=== PATIENT | female | born 1990 | race Caucasian/White ===

== ENCOUNTER 2019-10-23 13:07 | Emergency (ER) | payer BC, SELFPAY ==
[2019-10-23 13:22] VITALS: BP 144/81; PULSE 78; RESP 19; TEMP 36.6; O2SAT 98; BMI 26.6
[2019-10-23 13:23] LABS: Apearance,Urine Clear (Clear); Color,Urine Orange (Yellow); PH,Urine 6.5 (5.0-8.5)
[2019-10-23 13:24] LABS: Bilirubin,Urine Negative (Negative); Blood, Urine 2+ (Negative); Glucose,Urine (UA) 100 (Negative); Ketones,Urine Negative (Negative); Protein,Urine 1+ (Negative)
[2019-10-23 13:25] LABS: UTC Leukocyte Esterase,Urine Negative (Negative); UTC Nitrate,Urine Positive (Negative); Urobilinogen,Urine 1 EU/dl (0.2)
--- NOTE | 2019-10-23 13:47 | HMH.EDUTC ---
[facility] [place] Clinical Impression: UTI (urinary tract infection) Qualifiers: Urinary tract infection type: site unspecified Hematuria presence: with hematuria Qualified Code(s): N39.0 - Urinary tract infection, site not specified Disposition: Home, Self-Care Condition on Discharge: Good Instructions: Trimethoprim/Sulfamethoxazole (Alternative Therapy), Urinary Tract Infection, DI for Urinary Tract Infection (UTI), Phenazopyridine Additional Instructions: *Increase fluids. Water not Soda or Tea *Start antibiotic immediately and be sure to take as ordered for the FULL length of time although you should start to see improvement over the next 48 hours *Pyridium as needed Remember this medication will turn your urine [place]. This is normal but it will stain what ever it gets on *You should not use Pyridium for more than 48 hours. If so , follow up with your primary physician to review urine culture and ensure that antibiotic is adequate for infection *Be SURE to follow up anytime for new or worsening symptoms with your family doctor. AND in 48 hours for urine culture results with your family doctor, if you do not have a doctor then you may call back to the [facility] for urine culture results and further treatment. We do recommend that you choose and establish care with a Primary Care Physician. AND follow up with them in 10-14 days to repeat UA to ensure infection is resolved and blood no longer present *Be sure to let your PCP know that we sent urine cultures from the [facility] so they can follow up to ensure that you area the on the correct antibiotic Call your doctor office and make appointment for 48 hours (2 days from today) to follow up and get the results of your urine culture and further treatment Make sure to call back on Sunday to see what your urine culture showed [phone] Prescriptions: Sulfamethoxazole/Trimethoprim [Bactrim DS tablet] 1 each PO BID 10 Days #20 tab Transmission Status: Received by [id number] Phenazopyridine HCl [Pyridium 200mg Tablet] 200 pow PO TID #6 tab Transmission Status: Received by [id number] Referrals: PCP,No [Primary Care Provider] - As needed Time of Disposition: 13:53 Medical Decision Making - Agus Inquiry Pt receiving controlled substance: No Agus was queried for this patient: No Vital Signs: 10/23/19 13:22 08/13/20 13:58 Temperature 97.8 F 97.8 F Temperature Source Oral Pulse Rate 78 Pulse Rate [Right Brachial] 78 Respiratory Rate 19 19 Blood Pressure 144/81 H Blood Pressure [Right Arm] 144/81 H Blood Pressure Mean [Right Arm] 102 Blood Pressure Source [Right Arm] Automatic Cuff Blood Pressure Position [Right Arm] Sitting 02 Sat by Pulse Oximetry 98 Oxygen Delivery Method Room Air - Lab Data Lab results reviewed: Yes: I reviewed the patient's lab results. Lab Results 10/23/19 13:17: Urine Color [place], Urine Appearance Clear, Urine pH 6.5, Ur Specific [place] 1.020, Urine Protein 1+, Urine Glucose (UA) 100, Urine Ketones Negative, Urine Blood 2+, Urine Nitrate Positive A, Urine Bilirubin Negative, Urine Urobilinogen 1, Ur Leukocyte Esterase Negative Orders (Tests/Meds): ED MEDICATIONS Discontinued Medications Generic Name Dose Route Start Last Admin Trade Name Freq PRN Reason Stop Dose Admin Ceftriaxone Sodium 1 gm 10/23/19 13:36 10/23/19 13:57 Rocephin 1gm Vial IM 10/23/19 13:37 1 gm ONCE ONE Administration Protocol Lidocaine HCl 0 ml 10/23/19 13:36 10/23/19 13:57 Lidocaine 1% 10ml Mdv IM 10/23/19 13:37 2.1 ml ONCE ONE Administration ORDERS Category Date Time Status Urine Culture Stat Micro 10/23/19 13:20 [place] [facility] [place] - General Stated complaint: Burning when voiding, back pain Time Seen by Provider: 10/23/19 13:47 Mode of Arrival: Ambulatory Source of Information: Patient Limitations: No Limitations Description of Symptoms (Recalled from Triage Doc. by RN): PATIENT
[2019-10-23 13:58] VITALS: BP 144/81; PULSE 78; RESP 19; TEMP 36.6; O2SAT 98
== END 2019-10-23 14:05 | disposition home or self-care (01) ==
PROVIDERS: Emergency Provider Nurse Practitioner
DX: N30.00 Acute cystitis without hematuria (principal)
CPT/HCPCS: 81003; 87086; 87088; 87186; 96372; 99202

== ENCOUNTER 2019-11-15 18:32 | Emergency (ER) | payer BC, SELFPAY ==
[2019-11-15 18:53] VITALS: BP 140/80; PULSE 74; RESP 20; O2SAT 96; BMI 29.7
--- NOTE | 2019-11-15 19:26 | HMH.EDUTC ---
[facility] [place] Clinical Impression: Vaginal yeast infection UTI (urinary tract infection) Qualifiers: Urinary tract infection type: site unspecified Hematuria presence: without hematuria Qualified Code(s): N39.0 - Urinary tract infection, site not specified Disposition: Home, Self-Care Condition on Discharge: Good Instructions: Urinary Tract Infection, DI for Vaginal Yeast Infection, DI for Urinary Tract Infection (UTI) Additional Instructions: Stop the Macrobid and start the Minocycline Take one Diflucan now and may repeat in 72 hours Return if needed Straight to ER if any life threatening symptoms Call back to the [facility] in the next 48 hours to see if your urine culture is back and the result Return if needed *Increase fluids. Water not Soda or Tea *Start antibiotic immediately and be sure to take as ordered for the FULL length of time although you should start to see improvement over the next 48 hours *Be SURE to follow up anytime for new or worsening symptoms with your family doctor. AND in 48 hours for urine culture results with your family doctor, if you do not have a doctor then you may call back to the [facility] for urine culture results and further treatment. We do recommend that you choose and establish care with a Primary Care Physician. AND follow up with them in 10-14 days to repeat UA to ensure infection is resolved and blood no longer present *Be sure to let your PCP know that we sent urine cultures from the [facility] so they can follow up to ensure that you area the on the correct antibiotic Call your doctor office and make appointment for 48 hours (2 days from today) to follow up and get the results of your urine culture and further treatment Prescriptions: Fluconazole [Diflucan 150mg tab] 150 mg PO DIRECTED #2 tab Prescription Printed Minocycline HCl [Minocycline HCl 100mg Tab*] 100 mg PO BID 10 Days #20 tab Prescription Printed Referrals: PCPNo [Primary Care Provider] - As needed Time of Disposition: 19:39 Medical Decision Making - Agus Inquiry Pt receiving controlled substance: No Agus was queried for this patient: No Vital Signs: 11/15/19 18:53 Pulse Rate [Left Brachial] 74 Respiratory Rate 20 Blood Pressure [Left Arm] 140/80 Blood Pressure Mean [Left Arm] 100 Blood Pressure Source [Left Arm] Automatic Cuff Blood Pressure Position [Left Arm] Sitting 02 Sat by Pulse Oximetry 96 Oxygen Delivery Method Room Air - Lab Data Lab Results 11/15/19 19:27: Urine Color [place], Urine Appearance Clear, Urine pH 6.0, Ur Specific [place] 1.020, Urine Protein 1+, Urine Glucose (UA) 1+, Urine Ketones Trace, Urine Blood Negative, Urine Nitrate Positive A, Urine Bilirubin Negative, Urine Urobilinogen 1, Ur Leukocyte Esterase Trace Orders (Tests/Meds): ORDERS Category Date Time Status Urine Culture Stat Micro 11/15/19 18:20 Ordered Medical Decision Narrative: Last urine culture less than month ago showed staff as underlying organism, checked with pharmacy, macrobid not on list Patient medication changed to Minocycline and patient verbalized understanding [facility] [place] - General Stated complaint: yeast infection Time Seen by Provider: 11/15/19 19:26 Mode of Arrival: Ambulatory Source of Information: Patient Limitations: No Limitations Description of Symptoms (Recalled from Triage Doc. by RN): PATIENT C/O YEAST INFECTION. STATES SHE WAS TREATED HERE FOR UTI 2 WEEKS AGO. SHE RETURNED TO [facility] 3 DAYS AGO FOR CONTINUING UTI SYMPTOMS AND WAS PUT ON ANOTHER ANTIBIOTIC FOR UTI. HEENT Symptoms (Recalled from RN notes): No Resp Symptoms (Recalled from RN notes): No Skin Symptoms (Recalled from RN notes): No MS Symptoms (Recalled from RN notes): No Functional Status (Recalled from RN notes): WNL - History of Present Illness Provider Complaint: States that she was seen and treated for UTI about a month ago States that for last couple of days she has been having UTI symptoms again along with wh
[2019-11-15 19:28] LABS: Color,Urine Amber (Yellow)
[2019-11-15 19:29] LABS: Apearance,Urine Clear (Clear)
[2019-11-15 19:32] LABS: Glucose,Urine (UA) 1+ (Negative); Protein,Urine 1+ (Negative)
[2019-11-15 19:33] LABS: Bilirubin,Urine Negative (Negative); Blood, Urine Negative (Negative); Ketones,Urine TRACE (Negative)
[2019-11-15 19:34] LABS: UTC Leukocyte Esterase,Urine Trace (Negative); UTC Nitrate,Urine Positive (Negative); Urobilinogen,Urine 1 EU/dl (0.2)
[2019-11-15 19:41] VITALS: BP 140/80; PULSE 74; RESP 20; TEMP 36.7; O2SAT 96
== END 2019-11-15 19:45 | disposition home or self-care (01) ==
PROVIDERS: Emergency Provider Nurse Practitioner
DX: B37.3 Candidiasis of vulva and vagina (principal)
CPT/HCPCS: 81003; 87086; 99201

== ENCOUNTER 2021-01-16 10:40 | Emergency (ER) | payer BC, SELFPAY ==
[2021-01-16 10:41] VITALS: BP 108/68; PULSE 67; RESP 14; TEMP 36.6; O2SAT 98; BMI 33.2
--- NOTE | 2021-01-16 11:07 | HMH.EDGENADL ---
ED Disposition Clinical Impression: Finger laceration Qualifiers: Encounter type: initial encounter Finger: index finger Damage to nail status: without damage Foreign body presence: without foreign body Laterality: right Qualified Code(s): S61.210A - Laceration without foreign body of right index finger without damage to nail, initial encounter Disposition: Home, Self-Care Condition on Discharge: Good Instructions: DI for Laceration Repair Additional Instructions: Additional instructions for HAND LACERATION: Clean the wound daily with soap and water. Avoid submerging the wound. No swimming.DO NOT USE any antibiotic ointment such as Neosporin, Polysporin, or triple antibiotic. This will delay healing. See your primary care physician or return to the [facility] in 10 days for suture removal. The [facility] is open 9 AM to 9 PM 7 days a week. Return if any signs of infection including increasing pain, pus drainage, swelling, redness, red streaks, or fever. Referrals: Elena Roth APRN [Primary Care Provider] - - Critical Care Critical Care Time: No Attestation: On 01/16/21, the high probability of a clinically significant, sudden or life threatening deterioration of the following system(s) required my full and direct attention, intervention and personal management. The time I documented below is in addition to time spent performing reported procedures but includes the following listed in this critical care notation. Medical Decision Making - Agus Inquiry Pt receiving controlled substance: No Vital Signs: 01/16/21 10:41 Temperature 97.8 F Temperature Source Oral Pulse Rate [Left Radial] 67 Respiratory Rate 14 Blood Pressure [Left Arm] 108/68 L Blood Pressure Mean [Left Arm] 81 Blood Pressure Source [Left Arm] Automatic Cuff Blood Pressure Position [Left Arm] Sitting 02 Sat by Pulse Oximetry 98 Oxygen Delivery Method Room Air Orders (Tests/Meds): ED MEDICATIONS Discontinued Medications Generic Name Dose Route Start Last Admin Trade Name Freq PRN Reason Stop Dose Admin Lidocaine HCl 20 ml 01/16/21 11:18 Lidocaine 1% 20ml Mdv SQ 01/16/21 11:19 ONCE ONE Tetanus/Diphtheria Toxoids 0.5 ml 01/16/21 11:16 Tetanus-Diphth Toxoid, Adult 0.5ml Syr IM 01/16/21 11:17 .ONCE ONE Tetanus/Reduced Diphtheria/Acell Pertussis 0.5 ml 01/16/21 11:18 Tet/Diphth/Pert-Adult 0.5ml Syringe IM 01/16/21 11:19 .ONCE ONE General Adult HPI - General Stated complaint: AO 01/16 finger laceration Time Seen by Provider: 01/16/21 11:08 - History of Present Illness HPI narrative: Closed a pocket knife on her right index finger 1 hour ago. Sustained a laceration to the dorsum of her finger. No numbness or weakness. Last tetanus immunization is unknown. - Related Data Previous Rx's Medication Instructions Recorded azithromycin 250 mg tablet 250 mg PO QDAY 5 Days #6 tab 05/12/20 fluticasone propionate 50 1 spray INTRANASAL QDAY #9.9 ml 05/12/20 mcg/actuation nasal spray,suspension Allergies Allergy/AdvReac Type Severity Reaction Status Date / Time No Known Allergies Allergy Verified 05/12/20 17:21 [facility] History - Hepatitis A Screen Attestation statement:: This patient has been screened for Hepatitis A risk factors. 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
[2021-01-16 11:56] VITALS: BP 128/89; PULSE 74; RESP 14; TEMP 36.7; O2SAT 97
== END 2021-01-16 11:58 | disposition home or self-care (01) ==
PROVIDERS: Emergency Provider Emergency Medicine; PCP Nurse Practitioner Family
DX: S61.210A Laceration without foreign body of right index finger without damage to nail, initial encounter (principal); W26.2XXA Contact with edge of stiff paper, initial encounter; Y92.019 Unspecified place in single-family (private) house as the place of occurrence of the external cause
CPT/HCPCS: 12001; 99282

== ENCOUNTER → 2021-03-14 14:12 | Outpatient (CLI) | payer BC, SELFPAY ==
[2021-03-14 14:25] LABS: Alanine Aminotransferase 29 U/L (12-78); Albumin Level 4.8 g/dl (3.5-5.0); Albumin/Globulin Ratio 1.5 (1.1-1.8); Alkaline Phosphatase 66 U/L (38-126); Anion Gap 13.2 mEq/L (5-15); Aspartate Amino Transferase 28 U/L (14-36); Bilirubin,Total 0.5 mg/dl (0.2-1.3); Blood Urea Nitrogen 10 mg/dl (7-17); Calcium 10.2 mg/dl (8.4-10.2); Carbon Dioxide 30 mmol/L (22.0-30.0); Chloride 100 mmol/L (98-107); Estimated Glomerular Filt Rate 117 ml/min (>60); GFR (African American) 141 ML/MIN (>60); Globulin 3.1 g/dL (1.3-3.2); Glucose 92 mg/dl (74-100); Potassium 4.2 mmoL/L (3.5-5.1); Sodium 139 mmol/L (136-145); Total Protein,Serum 7.9 g/dl (6.3-8.2)
[2021-03-14 14:29] LABS: Basophils % 0.3 % (0.1-2.0); Eosinophils # 0.2 K/mm3 (0.0-0.4); Eosinophils % 2.2 % (0.1-12.0); Hematocrit 47.3 % (37.0-47.0); Hemoglobin 15.3 g/dL (12.2-16.2); Lymphocytes # 1.2 K/mm3 (0.7-4.5); Lymphocytes % 16.4 % (10-50); Mean Corpuscular HGB Conc 32.3 g/dL (31.8-35.4); Mean Corpuscular Hemoglobin 31.3 pg (27.0-31.2); Mean Corpuscular Volume 96.7 fl (81-99); Mean Platelet Volume 8.4 fl (7.4-10.4); Monocytes # 0.3 K/mm3 (0.1-1.0); Monocytes % 3.7 % (1.7-9.3); Neutrophils # 5.6 K/mm3 (1.8-7.8); Neutrophils % 77.4 % (37.0-80.0); Platelet Count 414 K/mm3 (142-424); Red Blood Count 4.89 M/mm3 (4.20-5.40); Red Cell Distribution Width 12.7 % (11.5-17.5); White Blood Count 7.2 K/mm3 (4.8-10.8)
[2021-03-14 14:42] LABS: T4 (Thyroxine) 10.1 ug/dl (5.53-11.0)
[2021-03-14 14:56] LABS: Thyroid Stimulating Hormone 1.39 uIU/mL (0.465-4.68)
== END ==
PROVIDERS: Visit Provider Nurse Practitioner Family
DX: F32.A Depression, unspecified (principal); F41.9 Anxiety disorder, unspecified
CPT/HCPCS: 80053; 84436; 84443; 85025

== ENCOUNTER → 2021-04-01 14:25 | Outpatient (CLI) | payer BC, SELFPAY ==
[2021-04-01 16:46] LABS: Amphetamine/Metha Screen,Urine Negative ng/ml (<1000); Barbiturates Screen,Urine Negative ng/ml (<200)
[2021-04-01 16:47] LABS: Benzodiazepines Screen,Urine Negative ng/ml (<200)
[2021-04-01 16:48] LABS: Cannabinoid Screen,Urine Positive ng/ml (<50); Cocaine Screen,Urine Negative ng/ml (<300)
[2021-04-01 16:49] LABS: Methadone Screen,Urine Negative ng/ml (<300); Opiate Screen,Urine Negative ng/ml (<300)
[2021-04-01 16:50] LABS: Phencyclidine Screen,Urine Negative ng/ml (<25)
== END ==
PROVIDERS: Visit Provider Nurse Practitioner Family
DX: F41.9 Anxiety disorder, unspecified (principal)
CPT/HCPCS: 80305

== ENCOUNTER → 2021-09-25 13:29 | Outpatient (CLI) | payer BC, SELFPAY | PROVIDERS: PCP Nurse Practitioner Family; Visit Provider Nurse Practitioner Family | DX: U07.1 COVID-19 (principal) | CPT/HCPCS: C9803; U0003; U0005 ==

== ENCOUNTER 2022-01-11 07:59 | Emergency (ER) | payer BC, SELFPAY ==
[2022-01-11 08:15] VITALS: BP 129/83; PULSE 77; RESP 18; TEMP 36.8; O2SAT 98; BMI 28.8
--- NOTE | 2022-01-11 08:20 | EXP.UTC ---
Discharge Plan Disposition Patient Disposition: Home, Self-Care Condition: Good Referrals Follow up/Referrals: Elena Roth APRN [Primary Care Provider] - See instructions Activity Restrictions/Add. Instructions Additional Instructions/Restrictions: Call your Family Doctor and get in as soon as possible Return if needed Drink extra fluids with and between meals. If you have difficulty drinking, try very small amounts of water or suck on ice chips. ? Avoid fruit juices, as these do not replace minerals and can actually increase diarrhea. ? Children and adults can use sports drinks to replenish electrolytes. Younger children and infants should use products formulated for children, like oral rehydration solutions. ? Eat food in small amounts and let your stomach recover. ? Get lots of rest. You may feel tired or weak. ? No greasy or fried foods for the next 24-48 hours BRAT diet Bananas Rice Apples and [place] ? Make sure to drink plenty of liquids ? Return if needed ? Straight to ER if any life threatening symptoms ? Zofran as prescribed ? You was given an outpatient order for diarrhea panel, please collect specimen and bring back to outpatient lab then call back to the [facility] or follow up with family doctor for results ? Follow up with family doctor in the next 48-72 hours if no improvement or any worsening of symptoms Clinical Impressions Clinical Impression: Nausea, vomiting, and diarrhea Stand Alone Forms Stand Alone Forms: Work/School Release Instructions Patient Instructions: Diarrhea, Nausea and Vomiting-Adult Discharge ED Provider: Beatrice Steve [facility] [place] General Stated complaint: dizzy, nausea, diarrhea, possible reaction to meds Mode of Arrival: Ambulatory Source of Information: Patient Limitations: No Limitations Time Seen by Provider: 01/11/22 08:20 Description of Symptoms (Recalled from Triage Doc. by RN): pt c/o possible medicine reaction to buspar. Pt states that she also has had nausea vomiting and diarrhea for prior 3 days. Was seen by Elena patricia for new buspar rx and has since been dizzy HEENT Symptoms (Recalled from RN notes): No Resp Symptoms (Recalled from RN notes): No Skin Symptoms (Recalled from RN notes): No MS Symptoms (Recalled from RN notes): No Functional Status (Recalled from RN notes): na History of Present Illness Provider Complaint: Patient states that she started on Sunday with diarrhea and then seen PCP on Sunday and had a flu test and was started on new medication Buspar States that she has also had N/V and felt dizzy on and off and thinks it may be the medication causing it States that she did have increased anxiety yesterday and she called the office and they sent her in a PRN Medication to help states that she just wanted to get checked out Related Data Allergies Allergy/AdvReac Type Severity Reaction Status Date / Time No Known Allergies Allergy Verified 01/11/22 09:40 Worker's Comp Is this a Worker's Comp case?: No PFSH PFSH Medical History (Updated 01/11/22 @ 09:42 by Cheryle Bauer APRN) Major depressive disorder Posttraumatic stress disorder Family History (Updated 01/11/22 @ 09:42 by Cheryle Bauer APRN) Sister FHx: mental illness Sister FHx: mental illness Grandmother Cancer Mother Thyroid disorder Diabetes Hypertension Hyperlipidemia Social History (Updated 01/11/22 @ 09:27 by Cheryle Bauer APRN) Smoking Status: Never smoker second hand exposure: No alcohol intake: never substance use type: marijuana counseling given: Yes (she does this 2-3 nights per week; to help her mood and appetite) current occupational status: employed Travel in the last 8 weeks: None adopted: No caregiver/support person: No foster care: No household members: none housing: house lives independently: Yes marital status: single number of child
[2022-01-11 08:39] VITALS: BP 129/83; PULSE 77; RESP 18; TEMP 36.8; O2SAT 98
[2022-01-11 08:40] LABS: UTC Influenza A Antigen Negative (Negative); UTC Influenza B Antigen Negative (Negative)
== END 2022-01-11 08:45 | disposition home or self-care (01) ==
PROVIDERS: Emergency Provider Nurse Practitioner; PCP Nurse Practitioner Family
DX: R11.2 Nausea with vomiting, unspecified (principal); R19.7 Diarrhea, unspecified
CPT/HCPCS: 87804; 99212; G0463

== ENCOUNTER → 2022-01-27 15:01 | Outpatient (CLI) | payer BC, SELFPAY ==
--- NOTE | 2022-01-27 15:08 | US_ITS ---
FINAL REPORT CLINICAL HISTORY: DISORDER OF THYROID FINDINGS: THYROID ULTRASOUND The right lobe of the thyroid measures 5.1 x 1.9 x 1.0 cm. The left lobe of the thyroid measures 4.0 x 1.1 x 0.8 cm. There are 2 TI-RADS 4 nodules in the right lobe of the thyroid. A 2.2 x 1.9 cm nodule is seen in the upper pole of the right thyroid. A 1.8 x 0.5 cm nodule is seen in the lower pole of the right thyroid. IMPRESSION: 2 TI-RADS 4 nodules in the right lobe of the thyroid. Per TI-RADS criteria recommend ultrasound-guided FNA of both nodules. Reviewed, Interpreted and Dictated by Paul Novak MD Transcribed by Eulogio Reyna Authenticated and [facility]
== END ==
PROVIDERS: PCP Nurse Practitioner Family; Visit Provider Nurse Practitioner Family
DX: E07.9 Disorder of thyroid, unspecified (principal)
CPT/HCPCS: 76536

== ENCOUNTER → 2022-05-08 07:51 | Outpatient (CLI) | payer BC, SELFPAY ==
--- NOTE | 2022-05-08 07:56 | US_ITS ---
FINAL REPORT CLINICAL HISTORY: .rt thyroid fna x 2 sites-- christine ulrich FINDINGS: Ultrasound guided thyroid biopsy. Attending radiologist: Dr. Ledbetter Physician Director Operations: Dr. Corky PA-C HISTORY: . 2 separate TR4 nodules within the right lobe of the thyroid. PROCEDURE: After informed consent was obtained and a time-out was performed, the patient was prepped and draped in usual sterile fashion over the right neck. Utilizing local anesthesia and sterile technique with a 25-gauge needle, access to lesions were obtained. A total of 4 passes were made into each nodule. The pathologist indicated the specimens were adequate for diagnostic purposes. The patient received no conscious sedation. The patient tolerated procedure well and left the department in good condition. IMPRESSION: Status post ultrasound guided biopsy of 2 thyroid nodules without immediate complication. Films reviewed , interpreted and dictated by Dr. Kim Ledbetter. Transcribed by Christine Fried PA-C. Reviewed, Interpreted and Dictated by Kim Ledbetter MD Transcribed by NBA Hollingsworth Authenticated and [facility]
== END ==
PROVIDERS: PCP Nurse Practitioner Family; Visit Provider Student in an Organized Health Care Education/Training Program
DX: E04.2 Nontoxic multinodular goiter (principal)
CPT/HCPCS: 10005; 88173

== ENCOUNTER → 2022-11-20 15:08 | Outpatient (CLI) | payer BC, SELFPAY ==
--- NOTE | 2022-11-20 15:14 | US_ITS ---
FINAL REPORT CLINICAL HISTORY: thyroid nodule COMPARISON: 01/27/2022 FINDINGS: THYROID ULTRASOUND: The right lobe of the thyroid measures 5.1 x 1.2 x 1.6 cm in size. There are 2 nodules seen in the right lobe of the thyroid gland. In the upper pole there is a 17 x 7 x 14 mm solid isoechoic TI-RADS category 3 nodule. In the lower pole of the right thyroid gland there is a 15 x 6 x 12 mm solid hypoechoic TI-RADS 4 category nodule with microcalcification present. Both of these nodules are stable and were both biopsied in April 2022. The left lobe of the thyroid measures 3.5 x 1.2 x 1.6 cm in size. No nodules are identified in the left lobe of the thyroid gland. The isthmus was not measured but appears unremarkable without evidence of a nodule seen. IMPRESSION: There are 2 nodules in the right lobe of the thyroid gland, not significantly changed in size or appearance since the prior ultrasound exam of January 2022. These nodules were both biopsied in April 2022. No new masses or nodules are noted in the thyroid since the prior exam. Reviewed, Interpreted and Dictated by Ryan Robertson III, MD Transcribed by Gertrudis Maya Authenticated and [facility]
== END ==
PROVIDERS: PCP Nurse Practitioner Family; Visit Provider Student in an Organized Health Care Education/Training Program
DX: E04.2 Nontoxic multinodular goiter (principal)
CPT/HCPCS: 76536

== ENCOUNTER → 2023-02-09 09:26 | Outpatient (CLI) | payer BC, SELFPAY ==
[2023-02-09 11:32] LABS: Amphetamine/Metha Screen,Urine Negative ng/ml (<1000)
[2023-02-09 11:34] LABS: Barbiturates Screen,Urine Negative ng/ml (<200); Benzodiazepines Screen,Urine Negative ng/ml (<200)
[2023-02-09 11:35] LABS: Cannabinoid Screen,Urine Positive ng/ml (<50)
[2023-02-09 11:36] LABS: Cocaine Screen,Urine Negative ng/ml (<300)
[2023-02-09 11:37] LABS: Methadone Screen,Urine Negative ng/ml (<300); Opiate Screen,Urine Negative ng/ml (<300)
[2023-02-09 11:38] LABS: Phencyclidine Screen,Urine Negative ng/ml (<25)
== END ==
PROVIDERS: PCP Nurse Practitioner Family; Visit Provider Nurse Practitioner Psychiatric/Mental Health
DX: Z91.89 Other specified personal risk factors, not elsewhere classified (principal); Z79.899 Other long term (current) drug therapy
CPT/HCPCS: 80305